=== PATIENT | male | born 1975 | race Caucasian/White ===

== ENCOUNTER → 2019-05-10 | Outpatient (CLI) | payer BC ==
--- NOTE | 2019-05-11 11:46 | XR ---
EXAMINATION TYPE: XR cervical spine limited DATE OF EXAM: 05/10/2019 TECHNIQUE: Frontal, lateral and open mouth view of the cervical spine are obtained. HISTORY: Neck Pain M54.2 COMPARISON: None FINDINGS: There is straightening of usual cervical lordosis. The cervical spine is visualized in its entirety from C1 thru the top of T1 level, it is satisfactory in alignment without evidence of acute fracture or dislocation. The pre-vertebral soft tissue appears within normal limits. The C1-C2 suzy culation is within normal limits on the open mouth view. Intervertebral disc space narrowing is seen at C5-C6 as well as uncovertebral hypertrophy and small anterior osteophytes. IMPRESSION: 1. No acute fracture or dislocation is seen in the cervical spine. 2. Degenerative disc disease at C5-C6 is moderate. 3. Straightening of usual cervical lordosis that may be on the basis of muscular strain, spasm or pat ient positioning.
== END | disposition home or self-care (01) ==
LOC: RADXRMAIN 16:21
PROVIDERS: ATTEND Family Medicine
DX: M50.322 Other cervical disc degeneration at C5-C6 level (principal)
CPT/HCPCS: 72040

== ENCOUNTER → 2023-06-03 | Outpatient (CLI) | payer BC ==
--- NOTE | 2023-06-04 11:29 | XR ---
EXAMINATION TYPE: XR chest 2V DATE OF EXAM: 06/03/2023 COMPARISON: None HISTORY: 47-year-old male with cough and wheezing TECHNIQUE: Frontal and lateral views FINDINGS: Heart normal size. Aorta and pulmonary vasculature within normal limits. Hyperinflation. Mild central peribronchial cuffing. IMPRESSION: COPD. No focal infiltrate seen.
== END | disposition home or self-care (01) ==
LOC: RADXRMAIN 16:17
PROVIDERS: ATTEND Family Medicine
DX: J44.9 Chronic obstructive pulmonary disease, unspecified (principal); R05.9 Cough, unspecified; R06.2 Wheezing
CPT/HCPCS: 71046